=== PATIENT | male | born 1955 | race Caucasian/White ===

== ENCOUNTER 2022-04-17 06:28 | Day surgery (SDC) | payer OTHER ==
[~2022-04-17] VITALS: Ht 188 cm; Wt 99.3 kg
[2022-04-17] VITALS (7 sets, daily range): BP systolic 122–136; BP diastolic 65–72
[~2022-04-17 06:28] MED LIST: ACET-1080 PO; ALBU108A14 IN; ASCO500T11 PO; ASPI-543 PO; ATOR40TA52 PO; CALC-281 PO; CARV25TA55 PO; CHOL20007 PO; FLUT50SP28; FOLI1TAB6 PO; GABA-339 PO; HYDR25TA4 PO; MULT-1018 PO; TRAZ50TA2 PO; [UNRECOGNIZED DRUG - CODE] OR
[2022-04-17] MEDS ORDERED: LIDOCAINE 2%HCL (LOCAL ANESTH.) INJ 20ML MDV ONE (07:47)
[2022-04-17] MEDS ORDERED: IODIXANOL 320MG/ML 100ML BTL IV ONE (07:48)
[2022-04-17] MEDS ORDERED: ANGIOMAX 250 MG VIAL IV ONE (08:00)
[2022-04-17] MEDS ORDERED: fentaNYL CITRATE 100 MCG/2 ML VL ONE (08:00)
[2022-04-17] MEDS ORDERED: MIDAZOLAM HCL 2MG/2ML 2ml VIAL (1mg/ml) ONE (08:00)
[2022-04-17] MEDS ORDERED: SODIUM CHL 0.9% 0 ML ONE (08:00)
== END 2022-04-17 11:02 | disposition home or self-care (01) ==
LOC: CATH 06:28
PROVIDERS: ATTEND Internal Medicine Cardiovascular Disease
DX: I25.10 Atherosclerotic heart disease of native coronary artery without angina pectoris (principal); T82.855A Stenosis of coronary artery stent, initial encounter; R06.09 Other forms of dyspnea; I48.0 Paroxysmal atrial fibrillation; Z79.01 Long term (current) use of anticoagulants; Y83.8 Other surgical procedures as the cause of abnormal reaction of the patient, or of later complication, without mention of misadventure at the time of the procedure; Z20.822 Contact with and (suspected) exposure to COVID-19
CPT/HCPCS: 93458; C1760; C1769; C1894; J1644; J2250; J3010; J7030; Q9967; U0003; 99152